=== PATIENT | male | born 1995 | race Caucasian/White ===

== ENCOUNTER → 2016-05-30 | Outpatient (CLI) | payer BC ==
[2016-05-30 15:27] LABS: CHLORIDE,CL 107 mmol/L (98-110); SODIUM,NA 142 mmol/L (136-146)
== END ==
LOC: MW.CHFP 14:37
PROVIDERS: ATTEND Emergency Medicine
DX: F32.9 Major depressive disorder, single episode, unspecified (principal); F41.9 Anxiety disorder, unspecified; R73.09 Other abnormal glucose
CPT/HCPCS: 36415; 80053; 83036; 84443; 85027

== ENCOUNTER 2017-09-21 17:27 | Emergency (ER) | payer BC ==
[2017-09-21 19:26] LABS: CHLORIDE,CL 103 mmol/L (98-107); SODIUM,NA 140 mmol/L (136-148)
--- NOTE | 2017-09-21 19:26 | EDM.PDOC ---
ED HPI GENERAL MEDICAL PROBLEM - General Chief Complaint: Fever Stated Complaint: FEVER AND STREP THROT Time Seen by Provider: 09/21/17 18:04 Source of Information: Reports: Patient History Limitations: Reports: No Limitations - History of Present Illness INITIAL COMMENTS - FREE TEXT/NARRATIVE: HISTORY AND PHYSICAL: History of present illness: [Herb is a 22-year-old male here with complaint of fever and sore throat. He states that he was seen 3 days ago for sore throat, on antibiotic for strep throat. He reports he is not getting better. Still having fevers and throat hurting. Muscles feel sore all over. Drinking fluid fine but can't eat due to the pain in his throat. He denies any cough, congestion, rhinorrhea, nausea, vomiting, diarrhea. He is having a "pain in stomach and esophagus" since starting antibiotic. He states pain in his esophagus with swallowing food. He denies any radiation of pain to his arms or jaw. No diaphoresis, SOB, palpitations. ] Review of systems: As per history of present illness and below otherwise all systems reviewed and negative. Past medical history: As per history of present illness and as reviewed below otherwise noncontributory. Surgical history: As per history of present illness and as reviewed below otherwise noncontributory. Social history: No reported history of drug or alcohol abuse. Family history: As per history of present illness and as reviewed below otherwise noncontributory. Physical exam: HEENT: Tonsils are erythematous with exudate noted. Atraumatic, normocephalic, pupils reactive, negative for conjunctival pallor or scleral icterus, mucous membranes moist, neck supple Lungs: Clear to auscultation, breath sounds equal bilaterally, chest nontender. Heart: S1S2, regular, negative for clicks, rubs, or JVD. Abdomen: Moderate epigastric tenderness. Soft, nondistended. Negative for masses or hepatosplenomegaly. Negative for costovertebral tenderness. Negative stovall's, obturator, psoas sign. Genitourinary: Deferelvis: Stable nontender.red. Rectal: Deferred. Extremities: Atraumatic, negative for cords or calf pain. Neurovascular unremarkable. Neuro: Awake, alert, oriented. Cranial nerves II through XII unremarkable. Cerebellum unremarkable. Motor and sensory unremarkable throughout. Exam nonfocal. Notes: Diagnostics: [CBC, CMP, Rapid strep, [place], UA, CXR] Therapeutics: [Famotidine Toradol Solumedrol] Impression: [Tonsillitis GERD] Plan: [#1 Continue antibiotic as prescribed #2 Take medrol dosepak and Prilosec as instructed #3 Alternate Tylenol and motrin as needed #4 Follow up with PCP #5 Return to ED as needed as discussed] Definitive disposition and diagnosis as appropriate pending reevaluation and review of above. Throat/Esophagus Pain Score (Numeric/FACES): 5 - Related Data Allergies Allergy/AdvReac Type Severity Reaction Status Date / Time No Known Allergies Allergy Verified 09/21/17 17:44 Home Meds: Home Meds Acetaminophen/HYDROcodone [Brackney 325-5 MG] 1 tab PO Q4H PRN 09/21/17 [History] Cefuroxime Axetil [Ceftin] 500 mg PO BID 09/21/17 [History] GI Cocktail 5 ml PO QID 09/21/17 [History] Omeprazole 20 mg PO DAILY #20 cap.sr 09/21/17 [Rx] methylPREDNISolone [Medrol] 4 mg PO ASDIRECTED #1 dospk 09/21/17 [Rx] Past Medical History - Past Health History Medical/Surgical History: Denies Medical/Surgical History Musculoskeletal History: Reports: Back Pain, Chronic Other Musculoskeletal History: herniated disc on the back - Past Surgical History Neurological Surgical History: Reports: Lumbar Spine Musculoskeletal Surgical History: Reports: Other (See Below) Other Musculoskeletal Surgeries/Procedures:: back surgery Social & Family History - Tobacco Use Smoking Status *Q: Former Smoker Used Tobacco, but Quit: Yes Month/Year Tobacco Last Used: 2016 Second Hand Smoke Exposure: No - Caffeine Use Caffeine Use: Reports: Coffee, Energy Drinks, Soda, Tea - Recreational Drug Use Recreational Drug Use: No ED ROS ENT - Review of Systems Review Of Systems: ROS reveals no pertinent complaints other than HPI. ED EXAM, ENT - Physical Exam Exam: See Below Course - Vital Signs Last Recorded V/S: Last Vital Signs Temp 36.8 C 09/21/17 17:40 Pulse 103 H 09/21/17 17:40 Resp 16 09/21/17 17:40 BP 126/73 09/21/17 17:40 Pulse Ox 100 09/21/17 17:40 - Orders/Labs/Meds Orders: Active Orders 24 hr Category Date Time Status Chest 2V [CR] Stat Exams 09/21/17 18:22 Taken CULTURE STREP A CONFIRMATION [RM] Stat Lab 09/21/17 18:55 Results STREP SCRN A RAPID W CULT CONF [RM] Stat Lab 09/21/17 18:55 Ordered UA W/MICROSCOPIC [URIN] Stat Lab 09/21/17 20:00 Ordered Labs: Laboratory Tests 09/21/17 09/21/17 09/21/17 Range/Units 18:50 18:50 18:50 WBC 11.10 H (4.0-11.0) K/uL RBC 4.64 (4.50-5.90) M/uL Hgb 13.8 (13.0-17.0) g/dL Hct 40.1 (38.0-50.0) % MCV 86.4 (80.0-98.0) fL MCH 29.7 (27.0-32.0) pg MCHC 34.4 (31.0-37.0) g/dL RDW Std Deviation 40.1 (28.0-62.0) fl RDW Coeff of Shana 13 (11.0-15.0) % Plt Count 208 (150-400) K/uL MPV 10.20 (7.40-12.00) fL Add Manual Diff YES Neutrophils % (Manual) 57 (48.0-80.0) % Band Neutrophils % 5 % Lymphocytes % (Manual) 28 (16.0-40.0) % Monocytes % (Manual) 9 (0.0-15.0) % Eosinophils % (Manual) 1 (0.0-7.0) % Nucleated RBC % 0.0 /100WBC Absolute Seg Neuts 6.3 H (1.4-5.7) Band Neutrophils # 0.6 Lymphocytes # (Manual) 3.1 H (0.6-2.4) Monocytes # (Manual) 1.0 H (0.0-0.8) Eosinophils # (Manual) 0.1 (0.0-0.7) Nucleated RBCs # 0 K/uL Sodium 140 (136-148) mmol/L Potassium 4.4 (3.5-5.1) mmol/L Chloride 103 (98-107) mmol/L Carbon Dioxide 31.5 (21.0-32.0) mmol/L BUN 12 (7.0-18.0) mg/dL Creatinine 1.0 (0.8-1.3) mg/dL Est Cr Clr Drug Dosing 115.87 mL/min Estimated GFR (MDRD) > 60.0 ml/min Glucose 93 (74-106) mg/dL Calcium 9.0 (8.5-10.1) mg/dL Total Bilirubin 0.3 (0.2-1.0) mg/dL AST 71 H (15-37) IU/L ALT 132 H (14-63) IU/L Alkaline Phosphatase 67 (46-116) U/L Total Protein 7.5 (6.4-8.2) g/dL Albumin 3.5 (3.4-5.0) g/dL Globulin 4.0 H (2.0-3.5) g/dL Albumin/Globulin Ratio 0.9 L (1.3-2.8) Lipase 100 (73-393) U/L Urine Color Urine Appearance Urine pH (5.0-8.0) Ur Specific Cyp[place] (1.001-1.035) Urine Protein (NEGATIVE) mg/dL Urine Glucose (UA) (NEGATIVE) mg/dL Urine Ketones (NEGATIVE) mg/dL Urine Occult Blood (NEGATIVE) Urine Nitrite (NEGATIVE) Urine Bilirubin (NEGATIVE) Urine Urobilinogen (<2.0) EU/dL Ur Leukocyte Esterase (NEGATIVE) Urine RBC (0-2/HPF) Urine WBC (0-5/HPF) Ur Epithelial Cells (NONE-FEW) Urine Bacteria (NEGATIVE) Monoscreen NEGATIVE (NEG) 09/21/17 Range/Units 20:00 WBC (4.0-11.0) K/uL RBC (4.50-5.90) M/uL Hgb (13.0-17.0) g/dL Hct (38.0-50.0) % MCV (80.0-98.0) fL MCH (27.0-32.0) pg MCHC (31.0-37.0) g/dL RDW Std Deviation (28.0-62.0) fl RDW Coeff of Shana (11.0-15.0) % Plt Count (150-400) K/uL MPV (7.40-12.00) fL Add Manual Diff Neutrophils % (Manual) (48.0-80.0) % Band Neutrophils % % Lymphocytes % (Manual) (16.0-40.0) % Monocytes % (Manual) (0.0-15.0) % Eosinophils % (Manual) (0.0-7.0) % Nucleated RBC % /100WBC Absolute Seg Neuts (1.4-5.7) Band Neutrophils # Lymphocytes # (Manual) (0.6-2.4) Monocytes # (Manual) (0.0-0.8) Eosinophils # (Manual) (0.0-0.7) Nucleated RBCs # K/uL Sodium (136-148) mmol/L Potassium (3.5-5.1) mmol/L Chloride (98-107) mmol/L Carbon Dioxide (21.0-32.0) mmol/L BUN (7.0-18.0) mg/dL Creatinine (0.8-1.3) mg/dL Est Cr Clr Drug Dosing mL/min Estimated GFR (MDRD) ml/min Glucose (74-106) mg/dL Calcium (8.5-10.1) mg/dL Total Bilirubin (0.2-1.0) mg/dL AST (15-37) IU/L ALT (14-63) IU/L Alkaline Phosphatase (46-116) U/L Total Protein (6.4-8.2) g/dL Albumin (3.4-5.0) g/dL Globulin (2.0-3.5) g/dL Albumin/Globulin Ratio (1.3-2.8) Lipase (73-393) U/L Urine Color YELLOW Urine Appearance CLEAR Urine pH 6.0 (5.0-8.0) Ur Specific [place] 1.025 (1.001-1.035) Urine Protein NEGATIVE (NEGATIVE) mg/dL Urine Glucose (UA) NEGATIVE (NEGATIVE) mg/dL Urine Ketones 15 H (NEGATIVE) mg/dL Urine Occult Blood NEGATIVE (NEGATIVE) Urine Nitrite NEGATIVE (NEGATIVE) Urine Bilirubin NEGATIVE (NEGATIVE) Urine Urobilinogen 0.2 (<2.0) EU/dL Ur Leukocyte Esterase NEGATIVE (NEGATIVE) Urine RBC 0-1 (0-2/HPF) Urine WBC 0-1 (0-5/HPF) Ur Epithelial Cells RARE (NONE-FEW) Urine Bacteria RARE (NEGATIVE) Monoscreen (NEG) Meds: Medications Discontinued Medications Generic Name Dose Route Start Last Admin Trade Name Mikeq PRN Reason Stop Dose Admin Famotidine 20 mg 09/21/17 19:30 09/21/17 20:02 Pepcid PO 09/21/17 19:31 20 mg ONETIME ONE Administration Ketorolac Tromethamine 60 mg 09/21/17 20:20 09/21/17 20:38 Toradol IM 09/21/17 20:21 60 mg ONETIME ONE Administration Methylprednisolone Sodium Succinate 125 mg 09/21/17 20:24 09/21/17 20:35 Solu-Medrol IVPUSH 09/21/17 20:25 125 mg ONETIME ONE Administration Departure - Departure Time of Disposition: 20:54 Disposition: Home, Self-Care 01 Condition: Good Clinical Impression: Tonsillitis, GERD (gastroesophageal reflux disease) - Discharge Information Prescriptions: methylPREDNISolone [Medrol] 4 mg PO ASDIRECTED #1 dospk Omeprazole 20 mg PO DAILY #20 cap.sr Referrals: Stephon Simental MD [Primary Care Provider] - Forms: ED Department Discharge Additional Instructions: The following information is given to patients seen in the emergency department who are being discharged to home. This information is to outline your options for follow-up care. We provide all patients seen in our emergency department with a follow-up referral. The need for follow-up, as well as the timing and circumstances, are variable depending upon the specifics of your emergency department visit. If you don't have a primary care physician on staff, we will provide you with a referral. We always advise you to contact your personal physician following an emergency department visit to inform them of the circumstance of the visit and for follow-up with them and/or the need for any referrals to a consulting specialist. The emergency department will also refer you to a specialist when appropriate. This referral assures that you have the opportunity for follow-up care with a specialist. All of these measure are taken in an effort to provide you with optimal care, which includes your follow-up. Under all circumstances we always encourage you to contact your private physician who remains a resource for coordinating your care. When calling for follow-up care, please make the office aware that this follow-up is from your recent emergency room visit. If for any reason you are refused follow-up, please contact the [facility] Emergency Department at and asked to speak to the emergency department charge nurse. [facility] [address] [place] [id number] #[id number] Continue antibiotic as prescribed #2 Take medrol dosepak and Prilosec as instructed #3 Alternate Tylenol and motrin as needed #4 Follow up with PCP #5 Return to ED as needed as discussed - My Orders Last 24 Hours: My Active Orders 09/21/17 18:22 Chest 2V [CR] Stat 09/21/17 18:55 CULTURE STREP A CONFIRMATION [RM] Stat STREP SCRN A RAPID W CULT CONF [RM] Stat 09/21/17 20:00 UA W/MICROSCOPIC [URIN] Stat - Assessment/Plan Last 24 Hours: My Active Orders 09/21/17 18:22 Chest 2V [CR] Stat 09/21/17 18:55 CULTURE STREP A CONFIRMATION [RM] Stat STREP SCRN A RAPID W CULT CONF [RM] Stat 09/21/17 20:00 UA W/MICROSCOPIC [URIN] Stat
[2017-09-21] MEDS ORDERED: Famotidine 20 MG Tab PO ONE (19:30)
[2017-09-21] MEDS ORDERED: Ketorolac 60 MG/2 ML SDV IM ONE (20:20)
[2017-09-21] MEDS ORDERED: methylPREDNISolone Sodium Succinate 125 MG/2 ML SDV IVPUSH ONE (20:24)
[2017-09-21 21:08] VITALS: BP 135/62
--- NOTE | 2017-09-22 15:45 | CR ---
EXAM DATE: 09/21/17 PATIENT'S AGE: 22 Patient: YONNY OWUSU Facility: [place], [place] Site . Site : 1995 Study: XRay Chest [id number]/5/2018 7:08:53 PM Ordering Physician: Doctor Rodríguez Final Report: INDICATION: Chest pain, recent diagnosis of Streptococcus TECHNIQUE: Chest 2 views. COMPARISON: None FINDINGS: Cardiovascular and mediastinum: Heart size and vasculature are normal in caliber and appearance. Mediastinum is within normal limits. Lungs and pleural spaces: Lungs are clear. No sign of infiltrate or mass. No sign of pleural effusion. No pneumothorax. Bones and soft tissues: No significant findings. IMPRESSION: No sign of acute disease. Dictated by Miracle Carter MD @ Sep 21 2017 7:11PM (Electronic Signature) Report Signed by Proxy. PAO
== END 2017-09-21 21:10 | disposition home or self-care (01) ==
LOC: MW.ED 17:27
DX: J03.90 Acute tonsillitis, unspecified (principal); K21.9 Gastro-esophageal reflux disease without esophagitis; Z87.891 Personal history of nicotine dependence
CPT/HCPCS: 36415; 71046; 80053; 81001; 83690; 85025; 86308; 87081; 87880; 93005; 96372; 99283; A9270; J1885; J2930

== ENCOUNTER 2019-05-09 06:24 | Emergency (ER) | payer BC ==
[2019-05-09] MEDS ORDERED: Acetaminophen/HYDROcodone 325-10 MG Tab PO ONE (06:30)
[2019-05-09] MEDS ORDERED: Ketorolac 60 MG/2 ML SDV IM ONE (06:30)
--- NOTE | 2019-05-09 06:43 | EDM.PDOC ---
ED HPI GENERAL MEDICAL PROBLEM - General Chief Complaint: Back Pain or Injury Stated Complaint: BACK WENT OUT Time Seen by Provider: 05/09/19 06:25 Source of Information: Reports: Patient - History of Present Illness INITIAL COMMENTS - FREE TEXT/NARRATIVE: The patient is a 23-year-old male with a history of 3 or 4 lumbar discectomies who presents to the ER secondary to sudden onset back pain. The patient states he was just walking when he suddenly developed sudden onset back pain located in the mid back and right flank region along with some hematuria. He thinks he can get into a position of comfort but the back pain is still hurting him significantly. No radiculopathy down the leg, no trauma, no dysuria, no fevers , no other acute complaints. He has not taken anything for the pain he just came right here. back Pain Score (Numeric/FACES): 7 - Related Data Allergies Allergy/AdvReac Type Severity Reaction Status Date / Time No Known Allergies Allergy Verified 05/09/19 06:28 Home Meds: Home Meds Hydrocodone/Acetaminophen [Eaton 10-325 Tablet] 1 tab PO Q4HR PRN 3 Days #10 tablet 05/09/19 [Rx] Ondansetron [Zofran ODT] 4 mg PO Q4H PRN 5 Days #20 tab.dis 05/09/19 [Rx] Past Medical History - Past Health History Medical/Surgical History: Denies Medical/Surgical History Cardiovascular History: Reports: None Respiratory History: Reports: None Gastrointestinal History: Reports: None Genitourinary History: Reports: None Musculoskeletal History: Reports: Back Pain, Chronic Other Musculoskeletal History: herniated disc on the back Psychiatric History: Reports: None Oncologic (Cancer) History: Reports: None - Past Surgical History Neurological Surgical History: Reports: Lumbar Spine Musculoskeletal Surgical History: Reports: Other (See Below) Other Musculoskeletal Surgeries/Procedures:: back surgery Social & Family History - Family History Family Medical History: Noncontributory - Tobacco Use Smoking Status *Q: Never Smoker - Caffeine Use Caffeine Use: Reports: Coffee, Energy Drinks, Soda, Tea - Recreational Drug Use Recreational Drug Use: No ED ROS GENERAL - Review of Systems Review Of Systems: See Below (Positive for right back pain and right flank pain , positive for hematuria, all other Positives and pertinent negatives as per HPI. All other pertinent systems were reviewed and are negative) ED EXAM,LOWER BACK PAIN/INJURY - Physical Exam Exam: See Below Text/Narrative:: Constitutional: Looks uncomfortable, Non-toxic appearance. HEENT: Normocephalic, Atraumatic, EOMI Neck: Normal range of motion, No stridor, trachea midline Respiratory: No respiratory distress, No tachypnea Cardiovascular: Deferred Gastrointestinal: obese Genital / Urinary: Deferred Musculoskeletal: All four extremities present and atraumatic Back: Painful range motion, old surgical scar in the midline lumbar region, point tenderness just to the right of L1 with positive right-sided flank pain, no lower lumbar paraspinal muscular tenderness Integument: Warm, Dry, Color is ethnicity appropriate, No rash. Neuro: Alert, Awake, x3, motor strength equal in the bilateral lower extremities at 5/5, no focal deficits noted Psych: Affect, Judgement, mood normal Course - Vital Signs Last Recorded V/S: Last Vital Signs Temp 36.6 C 05/09/19 06:28 Pulse 98 05/09/19 06:28 Resp 22 H 05/09/19 06:28 BP 122/78 05/09/19 06:28 Pulse Ox 97 05/09/19 06:28 - Orders/Labs/Meds Orders: Active Orders 24 hr Category Date Time Status Abdomen Pelvis wo Cont [CT] Stat Exams 05/09/19 06:32 Taken Meds: Medications Discontinued Medications Generic Name Dose Route Start Last Admin Trade Name Freq PRN Reason Stop Dose Admin Hydrocodone Bitart/Acetaminophen 1 tab 05/09/19 06:30 05/09/19 06:51 Eaton 325-10 Mg PO 05/09/19 06:31 1 tab ONETIME ONE Administration Ketorolac Tromethamine 60 mg 05/09/19 06:30 05/09/19 06:52 Toradol IM 05/09/19 06:31 60 mg ONETIME ONE Administration Departure - Departure Time of Disposition: 07:10 Disposition: Home, Self-Care 01 Condition: Good Clinical Impression: Renal colic on right side, Ureterolithiasis - Discharge Information Prescriptions: Hydrocodone/Acetaminophen [Eaton 10-325 Tablet] 1 tab PO Q4HR PRN 3 Days #10 tablet PRN Reason: Pain (Moderate 4-6) Ondansetron [Zofran ODT] 4 mg PO Q4H PRN 5 Days #20 tab.dis PRN Reason: Nausea/Vomiting Instructions: Kidney Stones, [id number] Referrals: Stephon Simental MD [Primary Care Provider] - Forms: ED Department Discharge Care Plan Goals: The following information is given to patients seen in the emergency department who are being discharged to home. This information is to outline your options for follow-up care. We provide all patients seen in our emergency department with a follow-up referral. The need for follow-up, as well as the timing and circumstances, are variable depending upon the specifics of your emergency department visit. If you don't have a primary care physician on staff, we will provide you with a referral. We always advise you to contact your personal physician following an emergency department visit to inform them of the circumstance of the visit and for follow-up with them and/or the need for any referrals to a consulting specialist. The emergency department will also refer you to a specialist when appropriate. This referral assures that you have the opportunity for follow-up care with a specialist. All of these measure are taken in an effort to provide you with optimal care, which includes your follow-up. Under all circumstances we always encourage you to contact your private physician who remains a resource for coordinating your care. When calling for follow-up care, please make the office aware that this follow-up is from your recent emergency room visit. If for any reason you are refused follow-up, please contact the [facility] Emergency Department at and asked to speak to the emergency department charge nurse. [facility] [address] [place] [id number] [id number] Sepsis Event Note - Evaluation Sepsis Screening Result: No Definite Risk - Focused Exam Vital Signs: Vital Signs Temp Pulse Resp BP Pulse Ox 05/09/19 06:28 36.6 C 98 22 H 122/78 97 Date Exam was Performed: 05/09/19 Time Exam was Performed: 07:10 - My Orders Last 24 Hours: My Active Orders 05/09/19 06:32 Abdomen Pelvis wo Cont [CT] Stat - Assessment/Plan Last 24 Hours: My Active Orders 05/09/19 06:32 Abdomen Pelvis wo Cont [CT] Stat
--- NOTE | 2019-05-09 07:26 | CT ---
INDICATION: Right flank pain and hematuria TECHNIQUE: CT abdomen and pelvis without contrast. COMPARISON: None. FINDINGS: Lower chest: Unremarkable. Liver: Normal in size and attenuation. No masses. Gallbladder and bile ducts: No stones or inflammation. No biliary dilatation. Pancreas: Unremarkable. No mass or inflammation. Spleen: Normal in size. No masses. Adrenal glands: Normal in size. No nodules. Kidneys: Tiny stone is passed into the bladder from the right ureter with minimal residual hydronephrosis. A few tiny stones are present in the left kidney. GI tract: Unremarkable. Normal in caliber. No sign of mass or inflammation. Normal appendix. Vasculature: Unremarkable. Lymph nodes: No lymphadenopathy. Abdominal wall/Omentum/Peritoneum: Unremarkable. No sign of mass or infiltration. No free air or significant free fluid. Pelvis: Unremarkable. No pelvic masses. Bones: Unremarkable for age. IMPRESSION: Tiny stone has passed into the bladder from the right ureter with minimal residual hydronephrosis. There is mild left-sided nephrolithiasis. Please note that all CT scans at this facility use dose modulation, iterative reconstruction, and/or weight-based dosing when appropriate to reduce radiation dose to as low as reasonably achievable. Dictated by Bulmaro Morse MD @ May 09 2019 7:20AM Signed by Dr. Bulmaro Morse @ May 09 2019 7:25AM
[2019-05-09 13:11] VITALS: BP 112/64; PULSE 86
== END 2019-05-09 07:30 | disposition home or self-care (01) ==
LOC: MW.ED 06:24
DX: N13.2 Hydronephrosis with renal and ureteral calculous obstruction (principal)
CPT/HCPCS: 74176; 96372; 99284; A9270; J1885; 99283

== ENCOUNTER 2021-06-17 09:28 | Emergency (ER) | payer BC ==
[2021-06-17] MEDS ORDERED: Sodium Chloride 0.9% 10 ML Syringe FLUSH PRN (09:43)
[2021-06-17] MEDS ORDERED: Sodium Chloride 0.9% 2.5 ML Syringe FLUSH PRN (09:43)
[2021-06-17] MEDS ORDERED: Ketorolac 30 MG/ML SDV IVPUSH ONE (09:44)
[2021-06-17] MEDS ORDERED: Morphine 4 MG/ML VIAL IVPUSH ONE (09:45)
[2021-06-17] MEDS ORDERED: Ondansetron 4 MG/2 ML SDV IVPUSH ONE (09:45)
[2021-06-17 10:38] LABS: BLOOD UREA NITROGEN,BUN 14 mg/dL (7.0-18.0); CARBON DIOXIDE,CO2 26.9 mmol/L (21.0-32.0); CHLORIDE,CL 102 mmol/L (98-107); GLUCOSE RANDOM 133 mg/dL (74-106); POTASSIUM,K 4.1 mmol/L (3.5-5.1); SODIUM,NA 138 mmol/L (136-148)
[2021-06-17 11:28] VITALS: BP 119/73; PULSE 72
== END 2021-06-17 11:28 | disposition home or self-care (01) ==
LOC: MW.ED 09:28
DX: N23 Unspecified renal colic (principal); F17.210 Nicotine dependence, cigarettes, uncomplicated
CPT/HCPCS: 36415; 74176; 80053; 81001; 85025; 96374; 96375; 99284; J1885; J2270; J2405; 99283